=== PATIENT | female | born 1990 | race Caucasian/White ===

== ENCOUNTER 2020-01-31 12:51 | Inpatient (IN) | payer BC ==
[2020-01-31] MEDS ORDERED: Water For Irrigation,Sterile 1,000 ML Container IRR PRN (19:42)
[2020-01-31] MEDS ORDERED: Carboprost Tromethamine 250 MCG/1 ML Amp IM PRN (19:42)
[2020-01-31] MEDS ORDERED: Misoprostol 200 MCG Tab PO PRN (19:42)
[2020-01-31] MEDS ORDERED: Methylergonovine 0.2 MG/1 ML Amp IM PRN (19:42)
[2020-01-31] MEDS ORDERED: Sodium Chloride 0.9% 10 ML SDV IV PRN (19:42)
[2020-01-31] MEDS ORDERED: Sodium Chloride 0.9% 10 ML Syringe FLUSH PRN (19:42)
[2020-01-31] MEDS ORDERED: Tranexamic Acid 1,000 MG in Sodium Chloride 0.9% 100 ML IV PRN (19:42)
[2020-01-31] MEDS ORDERED: Lidocaine 1% 50 ML MDV INJECT PRN (19:42)
[2020-01-31] MEDS ORDERED: Sodium Chloride 0.9% 2.5 ML Syringe FLUSH PRN (19:42)
[2020-01-31] MEDS ORDERED: Terbutaline 1 MG/ML SDV SUBCUT PRN (19:42)
[2020-01-31] MEDS ORDERED: Oxytocin/0.9 % Sodium Chloride 30 UNIT/500 ML BAG IV SCH ×2 (19:45)
[2020-01-31] MEDS: Lactated Ringers 1,000 ML IV SCH (20:50)
[2020-01-31] MEDS ORDERED: Misoprostol 25 MCG (1/4 of 100 MCG) Tab VAG PRN (21:00)
[2020-02-01] MEDS ORDERED: Misoprostol 25 MCG (1/4 of 100 MCG) Tab VAG PRN (01:00)
[2020-02-01] MEDS: Lactated Ringers 1,000 ML IV SCH ×3 (01:36→07:51)
[2020-02-01] MEDS: Butorphanol 1 MG/ML SDV IVPUSH PRN ×3 (04:10→06:41)
[2020-02-01] MEDS ORDERED: Ropivacaine HCl/PF 100 ML ONE (06:37)
--- NOTE | 2020-02-01 07:59 | PCM.PREANE ---
Preanesthetic Assessment - Anesthesia/Transfusion/Family Hx Anesthesia History: No Prior Anesthesia Family History of Anesthesia Reaction: No Transfusion History: No Prior Transfusion(s) - Review of Systems General: No Symptoms Pulmonary: No Symptoms Cardiovascular: No Symptoms Gastrointestinal: No Symptoms Neurological: No Symptoms Other: Reports: None - Physical Assessment NPO Status Date: 02/01/20 NPO Status Time: 22:00 Height: 1.57 m Weight: 69.853 kg ASA Class: 2 Mental Status: Alert & Oriented x3 Airway Class: Mallampati = 2 Dentition: Reports: Normal Dentition Thyro-Mental Finger Breadths: 3 Mouth Opening Finger Breadths: 3 ROM/Head Extension: Full Lungs: Clear to Auscultation, Normal Respiratory Effort Cardiovascular: Regular Rate, Regular Rhythm - Lab Values: Laboratory Last Values WBC 10.20 K/uL (4.0-11.0) 01/31/20 21: RBC 4.46 M/uL (4.30-5.90) 01/31/20 21:24 Hgb 13.8 g/dL (12.0-16.0) 01/31/20 21:24 Hct 40.2 % (36.0-46.0) 01/31/20 21:24 MCV 90.1 fL (80.0-98.0) 01/31/20 21:24 MCH 30.9 pg (27.0-32.0) 01/31/20 21:24 MCHC 34.3 g/dL (31.0-37.0) 01/31/20 21: RDW Std Deviation 46.7 fl (28.0-62.0) 01/31/20 21: RDW Coeff of Ce 14 % (11.0-15.0) 01/31/20 21:24 Plt Count 186 K/uL (150-400) 01/31/20 21: MPV 10.10 fL (7.40-12.00) 01/31/20 21: Nucleated RBC % 0.0 /100WBC 01/31/20 21:24 Nucleated RBCs # 0 K/uL 01/31/20 21:24 Blood Type A POSITIVE 01/31/20 21: Antibody Screen NEGATIVE 01/31/20 21:24 - Allergies Allergies/Adverse Reactions: Allergies Allergy/AdvReac Type Severity Reaction Status Date / Time gluten Allergy Other Verified 01/31/20 19:39 - Acknowledgements Anesthesia Type Planned: Epidural (The understands and accepts the anesthetic risks and benefits. All questions answered. Patient signed consent. ) Pt an Appropriate Candidate for the Planned Anesthesia: Yes Alternatives and Risks of Anesthesia Discussed w Pt/Guardian: Yes Pt/Guardian Understands and Agrees with Anesthesia Plan: Yes PreAnesthesia Questionnaire - Past Health History Medical/Surgical History: Denies Medical/Surgical History HEENT History: Reports: None Cardiovascular History: Reports: None Respiratory History: Reports: None Gastrointestinal History: Reports: None Genitourinary History: Reports: None CITY ASSESSOR History: Reports: None, Musculoskeletal History: Reports: Fracture, Other (See Below) Other Musculoskeletal History: left wrist fracture, no surgery. Neurological History: Reports: None Psychiatric History: Reports: None Hematologic History: Reports: Iron Deficiency - Infectious Disease History Infectious Disease History: Reports: Influenza - Past Surgical History GI Surgical History: Reports: None Musculoskeletal Surgical History: Reports: None - SUBSTANCE USE Tobacco Use Status *Q: Never Tobacco User Second Hand Smoke Exposure: No Recreational Drug Use History: No - HOME MEDS Home Medications: Home Meds Calcium Carbonate [Calcium] 500 mg PO DAILY 01/31/20 [History] Elderberry Fruit and Flower [Black Elderberry 575 mg Cap] 1 each PO DAILY 01/31/20 [History] Ferrous Sulfate, Dried [Iron] 160 mg PO DAILY 01/31/20 [History] Vits #93/Iron Fum/FA [ Formula Tablet] 1 each PO DAILY 01/31/20 [History] - CURRENT (IN HOUSE) MEDS Current Meds: Current Medications Carboprost Tromethamine (Hemabate Ds) 250 mcg IM ASDIRECTED PRN PRN Reason: Post Hemorrhage Oxytocin/Sodium Chloride (Oxytocin 30 Unit/500 Ml-Ns) 30 unit in 500 mls @ 999 mls/hr IV TITRATE KATIE Tranexamic Acid 1,000 mg/ (Sodium Chloride) 110 mls @ 660 mls/hr IV ONETIME PRN PRN Reason: Bleeding Oxytocin/Sodium Chloride (Oxytocin 30 Unit/500 Ml-Ns) 30 unit in 500 mls @ 2 mls/hr IV TITRATE KATIE; Protocol Lactated Ringer's (Ringers, Lactated) 1,000 mls @ 150 mls/hr IV ASDIRECTED KATIE Last Admin: 02/01/20 06:30 Dose: 999 mls/hr Documented by: Lidocaine HCl (Xylocaine 1%) 50 ml INJECT ONETIME PRN PRN Reason: Laceration repair Methylergonovine Maleate (Methergine) 0.2 mg IM ASDIRECTED PRN PRN Reason: Post Hemorrhage Misoprostol (Cytotec) 200 mcg PO ONETIME PRN PRN Reason: Post Hemorrhage Misoprostol (Cytotec) 25 mcg VAG ONETIME PRN PRN Reason: Cervical Ripening Last Admin: 01/31/20 21:18 Dose: 25 mcg Documented by: Misoprostol (Cytotec) 25 mcg VAG Q4H PRN PRN Reason: Cervical Ripening Last Admin: 02/01/20 01:42 Dose: 25 mcg Documented by: Ondansetron HCl (Zofran) 4 mg IVPUSH Q6H PRN PRN Reason: Nausea/Vomiting Sodium Chloride (Saline Flush) 10 ml FLUSH ASDIRECTED PRN PRN Reason: Keep Vein Open Sodium Chloride (Saline Flush) 2.5 ml FLUSH ASDIRECTED PRN PRN Reason: Keep Vein Open Sodium Chloride (Normal Saline) 10 ml IV ASDIRECTED PRN PRN Reason: IV Use Sterile Water (Sterile Water For Irrigation) 1,000 ml IRR ASDIRECTED PRN PRN Reason: delivery Terbutaline Sulfate (Brethine) 0.25 mg SUBCUT ASDIRECTED PRN PRN Reason: Tacysystole Discontinued Medications Butorphanol Tartrate (Stadol) 1 mg IVPUSH Q1H PRN PRN Reason: Pain Last Admin: 02/01/20 06:41 Dose: 1 mg Documented by: Ropivacaine (Naropin 0.2%) Confirm Administered Dose 100 mls @ as directed .ROUTE .STK-MED ONE Stop: 02/01/20 06:38
--- NOTE | 2020-02-01 08:06 | PCM.SN.2 ---
- Free Text/Narrative Note: Epidural done with a sterile technique. Consent signed. Back prepped with chlorhexidine, and draped. 1% lidocaine 3 ml for skin infiltration at l4-l5, then 2 ml at l3-l4. 17 gauge touhy frank with air at 5.5 cm. catheter threaded easily without any paresthesia. aspiration of catheter was negative for csf and heme. Test dose 1.5 % lidocaine with epinephrine was negative. The patient received more medications as noted below with the time indicated. The catheter was secured at 13 cm. The patient tolerated the procedure well, and was able to communicate throughout the entire procedure. 0646; Time out 06:50 patient positioned 07:09 Epidural catheter placed 0711 Test dose 1.5"% lidocaine with epi 3 ml negative 0713 1.5 % lidocaine with epi 2 ml bolus given 0718 0.2% ropivacaine 6 ml bolus given 0719 continuous infusion started.
[2020-02-01] MEDS ORDERED: Phenylephrine 1% 10 MG/ML SDV ONE (08:34)
[2020-02-01] MEDS ORDERED: Phenylephrine/Normal Saline 100 MCG/ML 10 ML Syringe IVPUSH PRN ×2 (08:57→09:05)
--- NOTE | 2020-02-01 08:57 | PCM.SN.2 ---
- Free Text/Narrative Note: Anesthesia time 6939-0366 Paged for mild hypotension. Baseline SBP 130's and currently low 90's. HR 70's. Pt asymptomatic (denies nausea, lightheadedness, etc.) but late decelerations noted by RN. 250ml LR bolus ordered and running. 100 mcg phenylephrine IV bolus given by [employer]RIBUTION TRANSFORMER [employer]SEMBLER. BP elevated from 90/48 to 97/54, HR stable. Two additional 100 mcg phenylephrine bolus given IV by DISTRIBUTION TRANSFORMER ASSEMBLER in 5 min increments. Current VS: 101/64, HR 74, RN reports stable HR variability, pt resting comfortably and asymptomatic. Reports adequate analgesia, approx. T10 level, able to lift legs off bed bilat. Orders written for PRN symptomatic hypotension and follow-up VS.
[2020-02-01] MEDS ORDERED: oxyCODONE 5 MG Tab PO PRN (13:18)
[2020-02-01] MEDS ORDERED: Ibuprofen 400 MG Tab PO PRN (13:18)
[2020-02-01] MEDS ORDERED: Benzocaine/Menthol 20%-0.5% Spray 78 GM Cannister TOP PRN (13:18)
[2020-02-01] MEDS ORDERED: Docusate Sodium 100 MG Cap PO PRN (13:18)
[2020-02-01] MEDS ORDERED: Acetaminophen 500 MG Tab PO PRN ×2 (13:18)
[2020-02-01] MEDS ORDERED: Lanolin 100% Cream 7 GM Tube TOP PRN (13:18)
[2020-02-01] MEDS ORDERED: Bisacodyl 10 MG Supp RECTAL PRN (13:18)
[2020-02-01] MEDS ORDERED: Witch Hazel Medicated Pads 40/Jar TOP PRN (13:18)
--- NOTE | 2020-02-01 13:26 | PCM.OPNOTE ---
- General Post-Op/Procedure Note Date of Surgery/Procedure: 02/01/20 Operative Procedure(s): Vaccuum assisted vaginal delivery/2nd MLL repaired Findings: Viable male APGARs 7, 8 weight 3730 gm. Spontaneous delivery intact placenta with 3V cord Pre Op Diagnosis: 42 week IUP. IOL for postdates. Recurrent variable decelerations Post-Op Diagnosis: Same Anesthesia Technique: Epidural Primary Surgeon: Liane Adhikari EBL in mLs: 300 Complications: none known Condition: Stable Free Text/Narrative:: Dictation [id number]
[2020-02-01] MEDS: Ibuprofen 800 MG Tab PO PRN ×2 (16:32→22:50)
[2020-02-01] MEDS: Ondansetron 4 MG/2 ML SDV IVPUSH PRN (17:55)
--- NOTE | 2020-02-01 20:07 | OR ---
SURGEON: Liane Adhikari M.D. DATE OF PROCEDURE: 02/01/2020 PREOPERATIVE DIAGNOSES: 1. 42-week intrauterine . 2. Induction of labor for post dates. 3. Recurrent variable decelerations. POSTOPERATIVE DIAGNOSES: 1. 42-week intrauterine . 2. Induction of labor for post dates. 3. Recurrent variable. PRIMARY SURGEON: Liane Adhikari M.D. PROCEDURE: Vacuum-assisted vaginal delivery, second-degree midline laceration repaired. ANESTHESIA: Epidural. ESTIMATED BLOOD LOSS: 300 mL. COMPLICATIONS: None known. FINDINGS: Viable male. scores 7 at one minute and 8 at five minutes. Weight of 3730 g. Spontaneous delivery, intact placenta, 3-vessel cord. DISPOSITION: Infant nursery, mom in LDRP. PROCEDURE IN DETAIL: Madelyn is a 29-year-old, G2, P1, at 42 weeks' gestational age, who presented on the evening of 01/31/2020, for scheduled induction of labor due to post dates. She initially underwent Cytotec ripening, responded very nicely, but became increasingly uncomfortable. Category 1 heart tones noted. That following morning, she had progressed to 3 cm, 100% effaced, and after epidural was found to be 6 cm. She underwent amniotomy. Clear fluid was returned. At that time, she was found to be 6 to 7 cm, 100% effaced, and -1 station. She continued to progress over the next almost 2 hours to complete, 100% effaced, at a +1 station, began pushing efforts. The patient pushed readily, but had difficulty progressing past the +2 station. After 2 hours of pushing, I was called for reassessment. The infant was slightly transverse, therefore, I rotated to an OA position and was able to continue to push, but remained at a +2 station. At that point, I then discussed with the patient proceeding with operative vaginal delivery given that she was becoming increasingly fatigued and the heart tones now were having deep variables to the 70s with contractions that are slower to return to baseline. The patient and her had a vacuum-assisted vaginal delivery at their last , and they were comfortable proceeding in this manner. Risks once again was discussed including cephalhematoma, intracranial bleeding for the infant, and increased risk for maternal vaginal trauma to the mother. Sagittal sutures were able to be palpated. Estimated weight approximately 3400 to 3500 g. A Mityvac was utilized. This was placed gently along the scalp. With the next contraction, I was able to insufflated to the green zone and was able to deliver to a +3 station, released between, and with the following contraction was able to once again insufflated the pressure to the green zone and then deliver to a +4 station. The vacuum was released. The 's head was delivered followed by anterior shoulder, posterior shoulder, and remainder of the body. Loose nuchal cord x1 was reduced manually. The 's oropharynx and nares were bulb suctioned. He was handed off to his mother with attending nursing staff at her side. After a delay, the cord was clamped x2 and cut. Cord arterial, cord venous, cord blood sampling was obtained. Light pressure was applied while the placenta was delivered spontaneously intact. Vigorous fundal uterine massage was then applied while 30 units Pitocin was delivered in 500 mL of fluid. Upon inspection of cervix, vaginal sidewall, and perineum, there was found to be a deeper second-degree laceration that was repaired in layers with the deeper subcutaneous tissue being reapproximated with 3-0 Vicryl in a continuous running fashion followed by remainder of the repair using 3-0 Vicryl as in the usual second-degree midline laceration repair. Uterus remained firm. Hemostasis was evident. Sponge count, instrument count, and needle count was correct. The patient remained in LDRP, infant to nursery. KYLIE / MARY /[id number]
[2020-02-02] MEDS: Ondansetron 4 MG/2 ML SDV IVPUSH PRN (04:27)
--- NOTE | 2020-02-02 07:21 | PCM48HPAN ---
Post Anesthesia Note - EVALUATION WITHIN 48HRS OF ANESTHETIC Vital Signs in Normal Range: Yes Patient Participated in Evaluation: Yes Respiratory Function Stable: Yes Airway Patent: Yes Cardiovascular Function Stable: Yes Hydration Status Stable: Yes Pain Control Satisfactory: Yes (Pain currently 2/10, reports adequate analgesia) Nausea and Vomiting Control Satisfactory: Yes (Taking PO well, reports mild nausea previously but has resolved) Mental Status Recovered: Yes Vital Signs: Last Vital Signs Temp 36.2 C 02/02/20 04:10 Pulse 65 02/02/20 04:10 Resp 15 02/02/20 04:10 BP 103/60 02/02/20 04:10 Pulse Ox 96 02/02/20 04:10 - COMMENTS/OBSERVATIONS Free Text/Narrative:: Ambulating well, reports full return of strength and sensation to BLE.
--- NOTE | 2020-02-02 10:28 | PCM.PNPP ---
- General Info Date of Service: 02/02/20 Subjective Update: Bleeding is light. Functional Status: Reports: Pain Controlled, Tolerating Diet, Ambulating, Urinating - Review of Systems General: Reports: No Symptoms HEENT: Reports: No Symptoms Pulmonary: Reports: No Symptoms Cardiovascular: Reports: No Symptoms Gastrointestinal: Reports: No Symptoms Genitourinary: Reports: No Symptoms Musculoskeletal: Reports: No Symptoms Skin: Reports: No Symptoms Neurological: Reports: No Symptoms Psychiatric: Reports: No Symptoms - Patient Data Vital Signs - Most Recent: Last Vital Signs Temp 35.9 C L 02/02/20 08:00 Pulse 93 02/02/20 08:00 Resp 15 02/02/20 08:00 BP 115/69 02/02/20 08:00 Pulse Ox 98 02/02/20 08:00 Weight - Most Recent: 154 lb Lab Results - Last 24 Hours: Laboratory Results - last 24 hr 02/01/20 02/02/20 Range/Units 12:51 05:35 Hgb 13.3 (12.0-16.0) g/dL Hct 39.4 (36.0-46.0) % Cord ABG pH 7.077 L (7.18-7.38) Cord ABG Base Excess -14 L (-10--2) Cord VBG pH 7.103 L (7.25-7.45) Cord VBG Base Excess -12 L (-10--2) Med Orders - Current: Current Medications Acetaminophen (Tylenol Extra Strength) 500 mg PO Q4H PRN PRN Reason: Pain Acetaminophen (Tylenol Extra Strength) 1,000 mg PO Q4H PRN PRN Reason: Pain Last Admin: 02/01/20 20:14 Dose: 1,000 mg Documented by: Benzocaine/Menthol (Dermoplast Pain Relief 20%-0.5% [place]) 78 gm TOP ASDIRECTED PRN PRN Reason: Perineal Comfort Measure Last Admin: 02/01/20 14:21 Dose: 1 spray Documented by: Bisacodyl (Dulcolax) 10 mg RECTAL ONETIME PRN PRN Reason: Constipation Carboprost Tromethamine (Hemabate Ds) 250 mcg IM ASDIRECTED PRN PRN Reason: Post Hemorrhage Docusate Sodium (Colace) 100 mg PO BID PRN PRN Reason: Constipation Last Admin: 02/01/20 22:54 Dose: 100 mg Documented by: Emollient Ointment (Lansinoh Hpa) 0 gm TOP ASDIRECTED PRN PRN Reason: Sore Nipples Oxytocin/Sodium Chloride (Oxytocin 30 Unit/500 Ml-Ns) 30 unit in 500 mls @ 999 mls/hr IV TITRATE KATIE Tranexamic Acid 1,000 mg/ (Sodium Chloride) 110 mls @ 660 mls/hr IV ONETIME PRN PRN Reason: Bleeding Oxytocin/Sodium Chloride (Oxytocin 30 Unit/500 Ml-Ns) 30 unit in 500 mls @ 2 mls/hr IV TITRATE KATIE; Protocol Last Titration: 02/01/20 12:52 Dose: 900 munits/min, 900 mls/hr Documented by: Lactated Ringer's (Ringers, Lactated) 1,000 mls @ 150 mls/hr IV ASDIRECTED KATIE Last Admin: 02/01/20 07:51 Dose: 500 mls/hr Documented by: Ibuprofen (Motrin) 400 mg PO Q4H PRN PRN Reason: Pain Ibuprofen (Motrin) 800 mg PO Q6H PRN PRN Reason: Pain Last Admin: 02/01/20 22:50 Dose: 800 mg Documented by: Methylergonovine Maleate (Methergine) 0.2 mg IM ASDIRECTED PRN PRN Reason: Post Hemorrhage Ondansetron HCl (Zofran) 4 mg IVPUSH Q6H PRN PRN Reason: Nausea/Vomiting Last Admin: 02/02/20 04:27 Dose: 4 mg Documented by: Oxycodone HCl (Oxycodone) 5 mg PO Q2H PRN PRN Reason: Pain Phenylephrine HCl (Phenylephrine In Ns 100 Mcg/Ml) 0.1 mg IVPUSH ASDIRECTED PRN PRN Reason: Hypotension Sodium Chloride (Saline Flush) 10 ml FLUSH ASDIRECTED PRN PRN Reason: Keep Vein Open Sodium Chloride (Saline Flush) 2.5 ml FLUSH ASDIRECTED PRN PRN Reason: Keep Vein Open Sodium Chloride (Normal Saline) 10 ml IV ASDIRECTED PRN PRN Reason: IV Use Sterile Water (Sterile Water For Irrigation) 1,000 ml IRR ASDIRECTED PRN PRN Reason: delivery Witch Cony (Tucks) 1 pad TOP ASDIRECTED PRN PRN Reason: comfort care Last Admin: 02/01/20 14:21 Dose: 1 pad Documented by: Discontinued Medications Butorphanol Tartrate (Stadol) 1 mg IVPUSH Q1H PRN PRN Reason: Pain Last Admin: 02/01/20 06:41 Dose: 1 mg Documented by: Ropivacaine (Naropin 0.2%) Confirm Administered Dose 100 mls @ as directed .ROUTE .STK-MED ONE Stop: 02/01/20 06:38 Last Admin: 02/02/20 10:19 Dose: Not Given Documented by: Lidocaine HCl (Xylocaine 1%) 50 ml INJECT ONETIME PRN PRN Reason: Laceration repair Misoprostol (Cytotec) 200 mcg PO ONETIME PRN PRN Reason: Post Hemorrhage Misoprostol (Cytotec) 25 mcg VAG ONETIME PRN PRN Reason: Cervical Ripening Last Admin: 01/31/20 21:18 Dose: 25 mcg Documented by: Misoprostol (Cytotec) 25 mcg VAG Q4H PRN PRN Reason: Cervical Ripening Last Admin: 02/01/20 01:42 Dose: 25 mcg Documented by: Phenylephrine HCl (Phenylephrine In Ns 100 Mcg/Ml) 100 mg IVPUSH ASDIRECTED PRN PRN Reason: Hypotension Terbutaline Sulfate (Brethine) 0.25 mg SUBCUT ASDIRECTED PRN PRN Reason: Tacysystole - Infant Interaction Infant Disposition, : [place] at Bedside Interaction: Holding Infant Infant Feeding: Breastfed ; Nursed Well Support Person: - Recovery Exam Fundal Tone: Firm Fundal Level: 1 Fingerbreadths Above Umbilicus Fundal Placement: Right Lochia Amount: Scant, Small Lochia Color: Rubra/Red Perineum Description: Edematous Episiotomy/Laceration: None Bladder Status: Voiding Urinary Elimination: Voided - Exam General: Alert, Oriented, Cooperative, No Acute Distress HEENT: Pupils Equal, Pupils Reactive Neck: Supple, Trachea Midline, No JVD Lungs: Normal Respiratory Effort GI/Abdominal Exam: Soft, Non-Tender, No Organomegaly, No Distention Extremities: Normal Inspection, Normal Range of Motion, Non-Tender, No Pedal Edema Skin: Warm, Dry, Intact Neurological: No New Focal Deficit Psy/Mental Status: Alert, Normal Affect, Normal Mood - Problem List Review Problem List Initiated/Reviewed/Updated: Yes - My Orders Last 24 Hours: My Active Orders 02/02/20 10:23 Ready for Discharge [RC] PER UNIT ROUTINE - Assessment Assessment:: 29yo PPD1 s/p VAVD, had urinary retention but has now resolved. - Plan Plan:: - vitals stable - Hgb 13, bleeding light, no s/s of anemia - well - had urinary retention after delivery, this AM has voided 3 times and feels is able to empty bladder completely Stable for discharge home, reviewed care instructions.
[2020-02-02] MEDS: Ibuprofen 800 MG Tab PO PRN (14:05)
== END 2020-02-02 16:15 | disposition home or self-care (01) | DRG 560 ==
LOC: MW.OB 12:51 → OBSVTOIN 02-01 12:51 → MW.OB 02-01 20:15
PROVIDERS: ADMIT Obstetrics & Gynecology; ATTEND Obstetrics & Gynecology
PROC: 10D07Z6 Extraction of Products of Conception, Vacuum, Via Natural or Artificial Opening (ICD-10-PCS; principal; 2020-02-01)
PROC: 3E0P7VZ Introduction of Hormone into Female Reproductive, Via Natural or Artificial Opening (ICD-10-PCS; 2020-02-01)
PROC: 0KQM0ZZ Repair Perineum Muscle, Open Approach (ICD-10-PCS; 2020-02-01)
PROC: 4A1HXCZ Monitoring of Products of Conception, Cardiac Rate, External Approach (ICD-10-PCS; 2020-02-01)
PROC: 3E0R3BZ Introduction of Anesthetic Agent into Spinal Canal, Percutaneous Approach (ICD-10-PCS; 2020-02-01)
PROC: 00HU33Z Insertion of Infusion Device into Spinal Canal, Percutaneous Approach (ICD-10-PCS; 2020-02-01)
DX: O48.0 Post-term pregnancy (principal); Z3A.42 42 weeks gestation of pregnancy; Z37.0 Single live birth; O76 Abnormality in fetal heart rate and rhythm complicating labor and delivery; O70.1 Second degree perineal laceration during delivery; O69.81X0 Labor and delivery complicated by cord around neck, without compression, not applicable or unspecified; O99.02 Anemia complicating childbirth; D50.9 Iron deficiency anemia, unspecified
CPT/HCPCS: 01967; 36415; 51702; 51798; 59025; 59409; 82803; 85014; 85018; 85027; 86592; 86850; 86900; 86901; A9270-GY; J0595; J2370; J2405; J2590; J2795; J7120